=== PATIENT | female | born 1970 ===

== ENCOUNTER → 2019-02-08 | Outpatient (CLI) | payer BC, OTHER ==
[~2019-02-08] VITALS: Ht 167.6 cm; Wt 100.3 kg
[~2019-02-08] MED LIST: FLEXERIL PO; IBUPROFEN 800800 M1 PO; MEDROL DOSPAK21 TA1 PO
[2019-02-08 10:55] VITALS: BP 159/110
--- NOTE | 2019-02-08 11:11 | NUR ---
Pain Clinic Assessment: 1. History of Osteoarthritis: Not Applicable History of Rheumatoid Arthritis: Not Applicable 2. Height: 5 ft. 6 in. 167.6 cm. Weight: 221.2 lb. oz. 100.336 kg. Patient's BMI: 35.7 3. Vital Signs: BP: 159/110 Pulse: 78 Resp: 16 Temp: 02 Sat: 97 ECG Mon: 4. Pain Intensity: 8 5. Fall Risk: Dizziness: Y Needs help standing or walking: N Fallen in the last 3 months: N Fall risk comments: 6. Patient on Blood Thinner: None 7. History of Hypertension: Y 8. Opioid Therapy greater than 6 weeks: N Opiate Contract Signed: 9. Risk Assessment Tool Provided: LOW RISK O/3 10. Functional Assessment Tool: 50/70 11. Recreational Drug Use: Never Drug Type: Tobacco Use: Never Smoker Tobacco Type: Amount or Packs/day: How Many Years: Alcohol Use: Yes Frequency: Weekly Quant: 1
--- NOTE | 2019-02-13 17:05 | HPC ---
[facility] [address] [place] [address] PAIN MANAGEMENT CONSULTATION Name: WANG DÍAZ Room #: REG TERRY ContrerasJoeLiaJoe#: [id number] Admission: 02/08/19 ������������������ Attend Phys: Kevin Leung MD Discharge: ������������������ Date of : 72 Report #: [id number] THIS REPORT FOR: //name// CC: ERWIN physician/PCP Kevin Leung DATE OF SERVICE: 02/08/2019 CHIEF COMPLAINT: Pain and discomfort in the right shoulder with numbness and tingling down in the arm on 01/11/2019. HISTORY: The patient is a 48-year-old female who has been referred to the pain clinic for evaluation of new onset of neck pain. The patient states that she noticed pain and discomfort on 01/11/2019. She denied any trauma. Noticed that her neck slowly started to become more problematic and painful. It involves the right shoulder with pain that radiated down from her shoulder into the right arm and forearm with numbness down into her fingers. She does work. She works at a computer. Noticed that the prolonged working at the computer, exacerbates her pain and discomfort. Noted that she has had some dizziness. States that if she rotates her head from one side to the next somewhat rapidly she might feel a little bit dizzy. She states that she had an MRI that showed some problems with the bones at 5, 6, and 7 in her neck. She has been using zhlo-iot-bbusdww medications such as Advil. This has not been very helpful. She was recently started on a Medrol Dosepak yesterday. She feels that she is noticing some improvement. She has been unable to use her right arm to any significant degree. She is unable to lie down. She has been sleeping in a recliner. She describes her pain and discomfort as horrible. At this point, she and her would like to consider a more aggressive therapy. She would like to undergo an injection to help speed the pain relief long. ALLERGIES: No known drug allergies. CURRENT MEDICATIONS: Flexeril 10 mg 1 p.o. t.i.d., ibuprofen 800 mg t.i.d., and Medrol Dosepak 21 tabs. PAST SURGICAL HISTORY: Hysterectomy, foot surgery, appendectomy, and removal of tonsils at age less than 13 years. SOCIAL HISTORY: She is self-employed, has not been able to work for the last 4 days. REVIEW OF SYSTEMS: Generally good health, fatigue, weakness, headaches, wears glasses, lightheadedness, dizziness, and slow to heal. LABORATORY DATA: MRI of the cervical spine dated 02/06/2019: 1. C3-C4, there is a small central disk protrusion. There is [place] [address] PAIN MANAGEMENT CONSULTATION Name: WANG DÍAZ [facility] #: [facility] Center[id number] Admission: 02/08/19 ������������������ Attend Phys: Kevin Leung MD Discharge: ������������������ Date of : 72 Report #: [id number] stenosis. There is mild left posterior uncinate hypertrophy and mild left neural foraminal stenosis. 2. C4-C5 minimal central disk bulging. No spinal canal stenosis. Mild bilateral uncinate hypertrophy. Moderate neural foraminal stenosis. 3. C5-C6 diffuse disk osteophyte complex eccentric to the right. Mild spinal canal stenosis. Mild right lateral recess stenosis. Bilateral uncinate hypertrophy. Bulky spurring of the right, uncinate process. Reas-sh-pbjgurnr left neural foraminal stenosis. 4. Hwtircsd-un-unkxia right neural foraminal stenosis. 5. C6-C7, mild diffuse disk bulge. Mild spinal canal stenosis. Bilateral uncinate hypertrophy, bulky spurring of the right, uncinate process. Spurring projects posteriorly. Moderate right lateral recess stenosis. Aaljlnrp-dt-lrqrvy left and severe right neural foraminal stenosis. 6. C7-T1 minimal central disk bulge. No spinal stenosis. Mild uncinate hypertrophy. Right facet arthrosis. Mild left and moderate right neural foraminal stenosis. PAIN CLINIC ASSESSMENT AND PQRS: 1. The patient has some osteoarthritic changes in her neck. She is not being treated for rheumatoid arthritis. 2. Height 5 feet 6 inches, weight 221 pounds, BMI 35.7. 3. Vital signs: Blood pressure 159/110, pulse 78, respiratory rate 16, room air saturation 97%. 4. Pain intensity 8/10. 5. Fall risk. The patient has not fallen in the last 3 months. 6. Blood thinner. The patient is not on a blood thinning medication. 7. Hypertension. The patient is being treated for hypertension. 8. Opioids greater than 6 weeks. The patient is not on an opioid regimen. 9. Risk assessment tool, low for opioid use. 10. Functional assessment tool 50/70. 11. Recreational drug use. The patient denies. 12. Tobacco: The patient has never smoked cigarettes. 13. Alcohol: The patient occasionally drinks 1 alcoholic beverage weekly. PHYSICAL EXAMINATION: GENERAL: The patient is a well-developed, well-nourished white female. Appears her stated age. She is alert and oriented x 3. Her affect is appropriate. Speech is fluent. HEENT: Normocephalic, atraumatic. Extraocular eye muscles intact. HEART: Regular rate. ABDOMEN: Nontender. Bowel sounds present. MUSCULOSKELETAL: The patient complains of pain and discomfort involving her right shoulder. She has some pain and discomfort in the anterior portion of her shoulder as well as in the back of her neck with pain that radiates down to the right midline area over the area of rhomboids. Has pain that radiates down to the anterior portion of her arm and down into the forearm area. Notes some [facility] [address] [place] [address] PAIN MANAGEMENT CONSULTATION Name: WANG DÍAZ Room #: REG [facility] BenLia#: [id number] Admission: 02/08/19 ������������������ Attend Phys: Kevin Leung MD Discharge: ������������������ Date of : 72 Report #: [id number] weakness in this area and notes some sensory changes. Left arm generally unremarkable. Muscle strength in this side 5/5 for the major muscle groups and 4+/5 for the right side. The patient without significant scoliosis, kyphosis, or lordosis. Lower extremity muscle strength judged to be 5/5 for the major muscle groups in the lower extremity. The patient without significant scoliosis, kyphosis or lordosis. Muscle strength in the lower extremity, judged to be 5/5 without any significant sensory changes in the lower extremities. IMPRESSION: 1. Cervical radiculopathy involving the right side. 2. Hypertension. RECOMMENDATIONS: We discussed treatment options with the patient and her . We explained that the steroid medications can be helpful in decreasing swelling and irritation of the nerve areas. Hopefully, she will continue to notice an improvement in pain as the swelling and irritation of the right side decreased. She and her are hopeful that the pain would resolve in the shortest amount of time. I explained that opioid medications can be helpful. It might take a little while for them to start to show the effects. The patient and her are somewhat impatient in that. She states her pain is horrible. She is unable to use her right arm. Unable to use it to do computer work. Unable to lay down, unable to sleep in a bed. They both would like to proceed with the most aggressive method at this point. We explained the possible complications of a cervical epidural steroid injection, which could be worsening of pain, no improvement in pain, increased muscle pain, nerve damage and spinal headache. They agreed to proceed. We did review with the patient the MRI point by point and showed pathologic areas. They both stated that they understood. A model was used to demonstrate the problems. A digital imaging of the spinal cord with nerve pathology was shown to the patient. They both stated that they understood. They both have elected to proceed with an epidural steroid injection. PROCEDURE NOTE: The patient was taken to the procedure area. The patient was then placed in the prone position. A pillow was placed under her shoulders forward to bolster and improve positioning. Her neck was sterilely prepped with a Betadine solution and allowed to dry. Anterior, posterior as well as lateral viewing with fluoroscopy was undertaken. The patient's neck was then infiltrated at the C7-T1 interspace with a 25-gauge needle. After this area was anesthetized/numb a 17-gauge Tuohy with loss of resistance technique using a midline approach was undertaken. It was directed toward the right paraspinous area. Aspiration was negative. This area was then injected with a total of 40 mg triamcinolone and 80 mg Depo-Medrol. The patient tolerated the procedure well. There were no complications. A total of 18 seconds fluoroscopy time was undertaken. The patient's pain decreased to 6 at the time of discharge. She will follow up in the future as needed. [address] [address] PAIN MANAGEMENT CONSULTATION Name: WANG DÍAZ Room #: CHUCHO Wharton.#: [id number] Admission: 02/08/19 ������������������ Attend Phys: Kevin Leung MD Discharge: ������������������ Date of : 72 Report #: [id number] We would like to thank you for letting us participate in her care. We hope she continues to improve. ��������������������������������������������� <ELECTRONICALLY SIGNED> ���������������������������������������� By: Kevin Leung MD ��������������������������������������������� 02/13/19 1705 [id number] Kevin Leung MD /nt
== END | disposition home or self-care (01) ==
LOC: PAIN 09:02
DX: M50.11 Cervical disc disorder with radiculopathy, high cervical region (principal); M99.71 Connective tissue and disc stenosis of intervertebral foramina of cervical region; M48.02 Spinal stenosis, cervical region; M19.90 Unspecified osteoarthritis, unspecified site; I10 Essential (primary) hypertension; Z79.899 Other long term (current) drug therapy; Z98.890 Other specified postprocedural states; Z79.82 Long term (current) use of aspirin